=== PATIENT | female | born 1940 | race Caucasian/White ===

== ENCOUNTER → 2016-12-16 | Outpatient (CLI) | payer MEDICARE, BC ==
--- NOTE | 2016-12-17 07:35 | USB ---
Reason for exam: follow-up at short interval from prior study. History: Patient is postmenopausal. Benign excisional biopsy of the right breast, April 2016. Taking estrogen for 18 years 1 month beginning at age 51. Taking progesterone for 2 months beginning at age 70. Physical Findings: Nurse Summary: Patient states felt right breast upper thickening x 2 months (nurse mm). US Breast Limited BILAT Right breast ultrasound demonstrates no cystic or solid lesion seen. Left breast ultrasound including all four quadrants, the retroareolar region and axilla demonstrates a 0.3 x 0.2 x 0.3cm lesion too small to characterize at 2 o'clock, a 0.4 x 0.4 x 0.3cm oval, cystic lesion at 3 o'clock, a 0.4 x 0.4 x 0.2cm oval, cystic lesion at 3 o'clock and a 0.2 x 0.2 x 0.2cm lesion too small to characterize at 6 o'clock. Palpable thickening on right, additional right breast ultrasound. These results were verbally communicated with the patient and result sheet given to the patient on 12/16/16. ASSESSMENT: Benign, BI-RAD 2 RECOMMENDATION: Return to routine screening mammogram schedule for both breasts. Back on schedule for August 2017.
== END | disposition home or self-care (01) ==
LOC: RADUSWWP 14:10
PROVIDERS: ATTEND Internal Medicine
DX: R92.8 Other abnormal and inconclusive findings on diagnostic imaging of breast (principal)

== ENCOUNTER → 2017-08-12 | Outpatient (CLI) | payer MEDICARE, BC ==
[2017-08-12 09:16] LABS: CHCM 32.4; HCT 36.4 % (34.0-46.0); HDW 2.19; HGB 12.6 gm/dL (11.4-16.0); MCH 34.2 pg (25.0-35.0); MCHC 34.5 g/dL (31.0-37.0); MCV 99.1 fL (80.0-100.0); Mean Platelet Volume 8.3; RBC 3.67 m/uL (3.80-5.40); RDW 12.8 % (11.5-15.5); WBC 3.7 k/uL (3.8-10.6)
[2017-08-12 09:25] LABS: Anion Gap 6 mmol/L; Blood Urea Nitrogen 20 mg/dL (7-17); Calcium 8.9 mg/dL (8.4-10.2); Carbon Dioxide 27 mmol/L (22-30); Chloride 107 mmol/L (98-107); Glucose 85 mg/dL (74-99); Non-African American GFR(MDRD) >60 (>60 ml/min/1.73 sqM); Potassium 4.3 mmol/L (3.5-5.1); Sodium 140 mmol/L (137-145)
== END | disposition home or self-care (01) ==
LOC: LABWHC1 08:38
PROVIDERS: ATTEND Internal Medicine Clinical Cardiac Electrophysiology
DX: I48.0 Paroxysmal atrial fibrillation (principal)
CPT/HCPCS: 36415; 80048; 85027

== ENCOUNTER 2017-08-18 08:13 | Day surgery (SDC) | payer MEDICARE, BC ==
[2017-08-18] MEDS: SODIUM CHLORIDE 0.9% 1,000 ML IV SCH (09:00)
[2017-08-18 09:09] LABS: INR 2.7 (<1.2); Prothrombin Time 25.9 sec (9.0-12.0)
[2017-08-18 09:11] LABS: Basophils % (A) 1 %; CH 33.6; Eosinophils % (A) 1 %; HDW 2.14; HGB 12.6 gm/dL (11.4-16.0); Luc # (Auto) 0.09; Luc % (Auto) 3; Lymphocytes # (A) 1.1 k/uL (1.0-4.8); Lymphocytes % (A) 33 %; MCH 33.1 pg (25.0-35.0); MCHC 32.3 g/dL (31.0-37.0); MCV 102.6 fL (80.0-100.0); Macrocytosis Slight; Mean Platelet Volume 8.4; Monocytes # (A) 0.3 k/uL (0-1.0); Monocytes % (A) 9 %; Neutrophils # (A) 1.9 k/uL (1.3-7.7); Neutrophils % (A) 54 %; RDW 13.8 % (11.5-15.5); WBC 3.5 k/uL (3.8-10.6); WBC (Perox) 3.77
[2017-08-18] MEDS ORDERED: ISOPROTERENOL 250 MCG/1.25 ML SYR IV ONE (10:08)
[2017-08-18] MEDS ORDERED: MIDAZOLAM 2 MG/2 ML VIAL ONE (10:08)
[2017-08-18] MEDS ORDERED: fentaNYL (PF) 50 MCG/ML 2 ML AMP ONE (10:08)
[2017-08-18] MEDS ORDERED: PROTAMINE SULFATE 10 MG/ML 5 ML VIAL IV ONE (10:08)
[2017-08-18] MEDS ORDERED: LIDOCAINE 1% INJ 10MG/ML (20 ML MDV) ONE (10:08)
[2017-08-18] MEDS ORDERED: PROPOFOL 10 MG/ML 20 ML VIAL IV ONE (10:08)
[2017-08-18] MEDS ORDERED: LIDOCAINE 2% INJ 20 MG/ML SQ ONE (10:58)
[2017-08-18] MEDS ORDERED: HEPARIN SODIUM,PORCINE/D5W PMX 25,000 UNIT in DEXTROSE/WATER 1 500ML.BAG IV ONE (11:03)
[2017-08-18] MEDS ORDERED: IOHEXOL 350 MG/ML 100 ML BOTTLE INJ ONE (13:12)
[2017-08-18] MEDS ORDERED: ACETAMINOPHEN TAB 325 MG TAB PO PRN (13:56)
[2017-08-18] MEDS ORDERED: ACETAMINOPHEN IV (For NPO) 1,000 MG in EMPTY BAG 1 BAG IVPB ONE (13:56)
--- NOTE | 2017-08-18 14:05 | P.PCN ---
Preoperative Diagnosis: Procedures performed (PVI - CRYO Ablation) Invasive hemodynamic monitoring while general anesthesia, right femoral arterial line for monitoring and sampling Comprehensive diagnostic EP study with attempted arrhythmia induction CS pacing and recording Drug infusion Catheter the mapping of the tachycardia (NOT 3D mapping) Intracardiac echocardiography Pulmonary vein isolation with transseptal and comprehensive EPS, [id number] Procedure details Patient was brought to the EP lab in a fasting state. Written informed consent was obtained prior to the procedure. Procedure performed under general anesthesia After initial muscle relaxant use, muscle relaxants were not given thereafter in order to assess phrenic nerve during procedure Patient prepped and draped as per protocol Full cryo-set up with standard preparation of the cryoablation tools done Femoral Venous access obtained on the right and left groins Sheaths placed Diagnostic catheters for the high right atrium, phrenic nerve stimulation and pacing, His bundle, RV and coronary sinus placed Intracardiac echo catheter placed Long sheath placed in the right atrium Left and right transseptal catheterization performed under intracardiac echo guidance Intravenous heparin with aCT above 300 Later, catheter positioning and balloon positioning under intracardiac echo Baseline measurements Sinus cycle length 1125 ms, PA interval 118 ms, QRS 93 ms and QT interval 470 ms. AH 56, HV 52 Comprehensive diagnostic EP study with drug infusion Atrial pacing performed from the high right atrium and the coronary sinus Sinus node recovery times at 600 504 100 ms were 11/28/2000, 1783 and 1837 ms respectively. AV node Wenckebach block 430 ms. VA Wenckebach block greater than 590 ms Atrial ERP 600\350 ms Straight pacing from HRA and from coronary sinus Wide open Isuprel. No atrial fibrillation induced. AV node Wenckebach block improved to 290 ms. Transseptal catheterization performed RA pressure 10/27/9 LA pressure 21//11 Transseptal catheterization performed with standard sheath. The cryoablation sheath was then placed with an over the wire exchange without any acute complications. All 4 pulmonary veins were isolated in the following sequence: Left superior followed by left inferior followed by right superior followed by right inferior The cryo-ablation balloon was placed at the os of each vein 1.5 mL of IV dye was injected to confirm an occluded vein Goal during cryoablation was to achieve -30C in the first 30 seconds. If not the balloon was repositioned to obtain this result After completion of Cryoblation with durations from 180-240 seconds, entrance block was confirmed with the Attain circular catheter in a roving fashion around the antrum of the pulmonary veins Phrenic nerve pacing was performed from the SVC, right innominate vein area and diaphragm voltage was monitored as well as manually Left superior pulmonary vein 2 cryo lesions,, and os. You inferior veins Complete isolation veins with exit block Left inferior pulmonary vein Single 3 minute cryo lesion Complete isolation of the veins with exit block Right superior pulmonary vein, during phrenic nerve pacing 2 cryo lesions for the right superior vein 1 cryo lesion for the right middle vein Please isolation with entrance block Right inferior pulmonary vein, during phrenic nerve pacing 1 cryo lesion for the right inferior vein, 3 minute At the end of the procedure the Achieve catheter was once again used to check for entrance block Phrenic nerve stimulation was performed to confirm diaphragmatic stimulation the end of the procedure Cine fluoroscopy was performed at the very end of the procedure to confirm movement of both diaphragms with inspiration and expiration At the end of the procedure the patient was extubated Heparin was reversed Venous sheaths were removed and hemostasis assured Result Successful pulmonary vein isolation using cryo-ablation Complete entrance block in all 4 veins confirmed No evidence for phrenic nerve injury Evidence for sick sinus syndrome with prolonged sinus node recovery times Mildly abnormal AV node function No evidence for slow pathway conduction No evidence for accessory pathway conduction Atrial fibrillation induced prior to cryoablation and terminated during cryoablation of the left superior pulmonary vein Plan No antiarrhythmic drug therapy, continue anticoagulation PT/INR tomorrow Anesthesia: GETA Condition: stable Disposition: floor
[2017-08-18] MEDS ORDERED: FUROSEMIDE 40 MG TAB PO STA (15:23)
[2017-08-18] MEDS ORDERED: ONDANSETRON 4 MG/2 ML VIAL ONE (15:49)
[2017-08-18] MEDS ORDERED: ONDANSETRON 4 MG/2 ML VIAL IVP PRN (15:49)
[2017-08-18] MEDS ORDERED: HYDROmorphone 1 MG/ML 1 ML SYRINGE ONE (17:46)
[2017-08-18] MEDS ORDERED: HYDROmorphone 1 MG/ML 1 ML SYRINGE IVP PRN (17:48)
[2017-08-18] MEDS ORDERED: WARFARIN 5 MG TAB PO SCH (19:15)
[2017-08-18] MEDS ORDERED: FAMOTIDINE 20 MG TAB PO SCH (21:00)
[2017-08-18] MEDS: FLECAINIDE 50 MG TAB PO SCH (21:15)
[2017-08-19 05:57] LABS: CH 33.5; CHCM 32.9; HDW 2.11; HGB 11.3 gm/dL (11.4-16.0); MCH 33.1 pg (25.0-35.0); MCHC 32.4 g/dL (31.0-37.0); MCV 102.4 fL (80.0-100.0); Macrocytosis Slight; Mean Platelet Volume 8.2; RBC 3.42 m/uL (3.80-5.40); RDW 13.4 % (11.5-15.5); WBC 6.1 k/uL (3.8-10.6)
[2017-08-19 06:01] LABS: INR 2.8 (<1.2); Prothrombin Time 27.5 sec (9.0-12.0)
[2017-08-19 06:15] LABS: Anion Gap 8 mmol/L; Blood Urea Nitrogen 13 mg/dL (7-17); Calcium 8.7 mg/dL (8.4-10.2); Carbon Dioxide 25 mmol/L (22-30); Chloride 103 mmol/L (98-107); Glucose 92 mg/dL (74-99); Non-African American GFR(MDRD) >60 (>60 ml/min/1.73 sqM); Potassium 3.7 mmol/L (3.5-5.1); Sodium 136 mmol/L (137-145)
[2017-08-19] MEDS: FLECAINIDE 50 MG TAB PO SCH (07:42)
[2017-08-19] MEDS ORDERED: ATORVASTATIN 10 MG TAB PO SCH (09:00)
[2017-08-19] MEDS ORDERED: LISINOPRIL 10 MG TAB PO SCH (09:00)
[2017-08-19 09:18] VITALS: PULSE 68
[2017-08-19] MEDS: SODIUM CHLORIDE 0.9% 1,000 ML IV SCH (11:08)
[2017-08-19 11:17] VITALS: BP 99/55; TEMP 96.4
[2017-08-19 12:09] VITALS: BMI 23.6
--- NOTE | 2017-08-19 13:27 | P.PN ---
Progress Note - Text She denies any chest discomfort. Groin is healed well. She had no bleeding issues after last evening after we held pressure and put on the FemoStop. No breathing trouble no cough or phlegm in her throat is a bit irritated after intubation, otherwise she is doing well. Appetite is good she ate for breakfast and lunch. On examination heart sounds are normal normal S1 normal S2 no murmurs no gallops Breath sounds are clear no rhonchi no crackles Abdomen is soft nontender extremities warm no edema Groin is healed well no hematoma no bleeding Impression Paroxysmal atrial fibrillation, brief episodes on flecainide, intolerant of higher doses of flecainide be on 50 mrem twice daily with QRS widening noted Status post successful ablation with cryoablation of the pulmonary veins Plan Discharge home today to follow Dr. Ramos tomorrow continue anticoagulation lifelong I will start flecainide after about a month
[2017-08-19 16:36] VITALS: RESP 18
[2017-08-19] MEDS ORDERED: WARFARIN 2.5 MG TAB PO SCH (18:00)
== END 2017-08-19 17:15 | disposition home or self-care (01) ==
LOC: CATHEP 08:13 → 6SEL 18:01 → CATHEP 08-19 17:15
PROVIDERS: ATTEND Internal Medicine Clinical Cardiac Electrophysiology
DX: I48.0 Paroxysmal atrial fibrillation (principal); I49.5 Sick sinus syndrome; Z79.01 Long term (current) use of anticoagulants; I10 Essential (primary) hypertension; I49.3 Ventricular premature depolarization; Z87.891 Personal history of nicotine dependence; Z79.890 Hormone replacement therapy; Z79.899 Other long term (current) drug therapy
CPT/HCPCS: 93623; 93662; 93609; 93656; 85347; 80048; 85025; 85027; 85610 ×2; C1894 ×3; C1769 ×4; C1730 ×3; C1759; C1893; C1766; J2001 ×2; J2250; J2720; Q9967; J2405; J1644; J3010; J1170; J0131; J2704

== ENCOUNTER → 2017-12-15 | Outpatient (CLI) | payer MEDICARE, BC ==
--- NOTE | 2017-12-17 06:38 | MM ---
Reason for exam: screening (asymptomatic). Last mammogram was performed 1 year and 3 months ago. History: Patient is postmenopausal. Benign excisional biopsy of the right breast, April 2016. Taking estrogen for 18 years 1 month beginning at age 51. Taking progesterone for 2 months beginning at age 70. Physical Findings: A clinical breast exam by your physician is recommended on an annual basis and results should be correlated with mammographic findings. MG Screening Mammo w CAD Bilateral CC and MLO view(s) were taken. Prior study comparison: December 16, 2016, bilateral US breast limited BILAT. September 12, 2016, left breast MG work up mamm w CAD LT. September 09, 2016, bilateral MG screening mammo w CAD. November 30, 2014, bilateral MG screening mammo w CAD. The breast tissue is heterogeneously dense. This may lower the sensitivity of mammography. No suspicious abnormality. No significant changes when compared with prior studies. ASSESSMENT: Negative, BI-RAD 1 RECOMMENDATION: Routine screening mammogram of both breasts in 1 year.
== END | disposition home or self-care (01) ==
LOC: RADMAMWWP 12:47
PROVIDERS: ATTEND Internal Medicine
DX: Z12.31 Encounter for screening mammogram for malignant neoplasm of breast (principal)
CPT/HCPCS: 77067

== ENCOUNTER → 2018-12-11 | Outpatient (CLI) | payer MEDICARE, BC ==
--- NOTE | 2018-12-12 14:26 | MR ---
EXAMINATION TYPE: MR shoulder RT wo con DATE OF EXAM: 12/11/2018 COMPARISON: None HISTORY: Rt shoulder pain TECHNIQUE: Multiplanar, multisequence imaging of the right shoulder is performed without contrast. FINDINGS: Rotator Cuff: There is diffuse thickening of the distal margin of the supraspinatus and infraspinatus tendons with increased signal compatible with severe diffuse tendinopathy. There is a 6 mm through t hickness tear at the insertion of the conjoined portion of the tendon. No retraction. Fluid in the sinclair bacromial subdeltoid bursa noted. Acromioclavicular Joint: Arthropathy of the AC joint noted with impingement in mass effect upon the r otator cuff. Glenohumeral Joint: No sizable joint effusion. Although there is motion artifact. Glenohumeral ligame nts appear to be intact. Labrum: The labrum appears grossly intact given limitation of non-arthrogram study. Biceps Tendon: Bicipital tendon is situated within the bicipital groove. There is increased signal in the intracapsular portion of the tendon compatible tendinosis. Bone marrow signal: Marrow edema involving the greater tuberosity is nonspecific. No fracture line se en. Other: No additional significant abnormality is appreciated. IMPRESSION: 1. Diffuse tendinopathy of the supraspinatus and infraspinatus tendons with 6 mm through thickness te ar involving the insertion of the conjoined portion of the tendon. No retraction. 2. Impingement secondary to AC joint arthropathy. 3. Bicipital tendinosis.
== END | disposition home or self-care (01) ==
LOC: RADMRIMAIN 14:40
PROVIDERS: ATTEND Orthopaedic Surgery
DX: M75.101 Unspecified rotator cuff tear or rupture of right shoulder, not specified as traumatic (principal); M19.011 Primary osteoarthritis, right shoulder; M75.81 Other shoulder lesions, right shoulder; M75.21 Bicipital tendinitis, right shoulder; M25.811 Other specified joint disorders, right shoulder

== ENCOUNTER → 2018-12-29 | Outpatient (CLI) | payer MEDICARE, BC ==
--- NOTE | 2019-01-04 08:41 | MM ---
Reason for exam: screening (asymptomatic). Last mammogram was performed 1 year ago. History: Patient is postmenopausal and history of other cancer. Benign excisional biopsy of the right breast, April 2016. Taking estrogen for 27 years 1 month beginning at age 51. Taking progesterone for 8 years 2 months beginning at age 70. Physical Findings: A clinical breast exam by your physician is recommended on an annual basis and results should be correlated with mammographic findings. MG 3D Screening Mammo W/Cad Bilateral CC and MLO view(s) were taken. Prior study comparison: December 15, 2017, bilateral MG screening mammo w CAD. September 12, 2016, left breast MG work up mamm w CAD LT. The breast tissue is extremely dense which could obscure a lesion on mammography. Finding #1: There is a 9 mm circumscribed round mass in the upper quadrant, middle position of the left breast. Finding #2: There are typically benign round calcifications in both breasts. There is no discrete abnormality. New finding since December 15, 2017 and September 12, 2016. ASSESSMENT: Incomplete: need additional imaging evaluation, BI-RAD 0 RECOMMENDATION: Ultrasound of the left breast. [facility] will attempt to contact patient to return for ultrasound.
== END | disposition home or self-care (01) ==
LOC: RADMAMWWP 11:13
PROVIDERS: ATTEND Internal Medicine
DX: Z12.31 Encounter for screening mammogram for malignant neoplasm of breast (principal)
CPT/HCPCS: 77063; 77067

== ENCOUNTER → 2019-02-04 | Outpatient (CLI) | payer MEDICARE, BC ==
--- NOTE | 2019-02-05 07:50 | USB ---
Reason for exam: additional evaluation requested from abnormal screening. History: Patient is postmenopausal and history of other cancer. Benign excisional biopsy of the right breast, April 2016. Taking estrogen for 27 years 1 month beginning at age 51. Taking progesterone for 8 years 2 months beginning at age 70. Physical Findings: Nurse Summary: bilateral nodularity, all soft, movable (nurse ts). US Breast Workup Limited LT Left limited breast ultrasound including focal area of concern, retroareolar and axilla demonstrates a 0.7 x 0.5 x 0.3cm mixed lesion at 11 o'clock likely debris filled cyst and a 0.2 x 0.2 x 0.2cm lesion too small to characterize at 1 o'clock. These results were verbally communicated with the patient and result sheet given to the patient on 02/04/19. ASSESSMENT: Probably benign, BI-RAD 3 RECOMMENDATION: Ultrasound of the left breast in 6 months.
== END | disposition home or self-care (01) ==
LOC: RADUSWWP 14:25
PROVIDERS: ATTEND Internal Medicine
DX: R92.8 Other abnormal and inconclusive findings on diagnostic imaging of breast (principal)

== ENCOUNTER → 2019-08-19 | Outpatient (CLI) | payer MEDICARE, BC ==
--- NOTE | 2019-08-19 11:22 | USB ---
Reason for exam: follow-up at short interval from prior study. History: Patient is postmenopausal and history of other cancer. Benign excisional biopsy of the right breast, April 2016. Taking estrogen for 27 years 1 month beginning at age 51. Taking progesterone for 8 years 2 months beginning at age 70. Physical Findings: Nurse did not find any significant physical abnormalities on exam. US Breast Limited LT Left limited breast ultrasound including focal area of concern, retroareolar and axilla demonstrates a 0.2 x 0.2 x 0.2cm cystic lesion at 1 o'clock, on 12/16/16 this was 0.3 x 0.2 x 0.3cm, benign. These results were verbally communicated with the patient and result sheet given to the patient on 08/19/19. ASSESSMENT: Benign, BI-RAD 2 RECOMMENDATION: Return to routine screening mammogram schedule for both breasts. Back on schedule for December 2019.
== END | disposition home or self-care (01) ==
LOC: RADUSWWP 10:13
PROVIDERS: ATTEND Internal Medicine
DX: R92.8 Other abnormal and inconclusive findings on diagnostic imaging of breast (principal)

== ENCOUNTER → 2019-09-29 | Outpatient (CLI) | payer MEDICARE, BC ==
--- NOTE | 2019-09-29 09:26 | BD ---
EXAMINATION TYPE: Axial Bone Density DATE OF EXAM: 09/29/2019 COMPARISON: 09/20/2013 CLINICAL HISTORY: Disorder of bone Height: 63.5 Weight: 140.8 FRAX RISK QUESTIONS: Alcohol (3 or more units per day): no Family History (Parent hip fracture): no Glucocorticoids (More than 3mos): no (Ex: prednisone, prednisolone, methylprednisolone, dexamethasone, and hydrocortisone). History of Fracture in Adulthood: no Secondary Osteoporosis: 1. Type 1 Diabetes: no 2. Hyperthyroidism: no 3. Menopause before 45: no 4. Malnutrition: no 5. Chronic liver disease: no Rheumatoid Arthritis: no Current Tobacco Use: no RISK FACTORS HISTORY OF: Surgery to Spine/Hip(right/left)/Wrist (right/left): right hip replaced When: 8 years ago Family History of Osteoporosis: no Active: yes Diet low in dairy products/other sources of calcium: yes Postmenopausal woman: age 51 Lost more than 2 inches in height since high school: no MEDICATIONS: blood pressure meds, statin meds Additional History: EXAM MEASUREMENTS: Bone mineral densitometry was performed using the [employer] System. Bone mineral density as measured about the Lumbar spine is: ----- L1-L4(G/cm2): 1.021 T Score Values are as follows: ----- L2: -2.0 ----- L3: -1.0 ----- L4: -0.5 ----- L1-L4: -1.3 Bone mineral density has: increased 3.0 % since study of: 09.20.2013 Bone mineral density about the L hip (g/cm2): 0.803 T Score values are as follows: -----L Neck: -1.7 -----L Total: -1.0 Bone mineral density has: increased 2.6 % since study of: 09.20.2013 IMPRESSION: Osteopenia (T Score between -2.5 and 1). There is slightly increased risk of fracture and patient may be considered for treatment. Re-Screen 2-5 years. NOTE: T-SCORE=SD OF THE YOUNG ADULT MEAN.
== END | disposition home or self-care (01) ==
LOC: RADBDWWP 08:38
PROVIDERS: ATTEND Internal Medicine
DX: M85.89 Other specified disorders of bone density and structure, multiple sites (principal)
CPT/HCPCS: 77080

== ENCOUNTER → 2020-07-06 | Outpatient (CLI) | payer MEDICARE, BC ==
[2020-07-06 13:10] LABS: Appearance,Urine Clear (Clear); Bilirubin,Urine Negative (Negative); Blood,Urine Negative (Negative); Color,Urine Colorless; Glucose,Urine (UA) Negative (Negative); HCT 37.7 % (34.0-46.0); HGB 12.1 gm/dL (11.4-16.0); Ketones,Urine Negative (Negative); Leukocyte Esterase,Urine Negative (Negative); MCH 31.8 pg (25.0-35.0); MCHC 32.2 g/dL (31.0-37.0); Mean Platelet Volume 8.6; Nitrite,Urine Negative (Negative); Platelet Count 153 k/uL (150-450); Protein,Urine Negative (Negative); RBC 3.81 m/uL (3.80-5.40); RDW 12.7 % (11.5-15.5); Specific Gravity,Urine 1.005 (1.001-1.035); Urobilinogen,Urine <2.0 mg/dL (<2.0)
[2020-07-06 13:15] LABS: ALT 20 U/L (4-34); AST 41 U/L (14-36); African American GFR (CKD) >90 (>60 ml/min/1.73 sqM); Albumin 4.2 g/dL (3.5-5.0); Alkaline Phosphatase 96 U/L (38-126); Anion Gap 5 mmol/L; Blood Urea Nitrogen 18 mg/dL (7-17); Calcium 9.4 mg/dL (8.4-10.2); Carbon Dioxide 28 mmol/L (22-30); Chloride 106 mmol/L (98-107); Glucose 81 mg/dL (74-99); Non-African American GFR(CKD) 88 (>60 ml/min/1.73 sqM); Potassium 4.4 mmol/L (3.5-5.1); Sodium 139 mmol/L (137-145); Total Bilirubin 0.8 mg/dL (0.2-1.3); Total Protein 6.4 g/dL (6.3-8.2)
[2020-07-06 13:22] LABS: INR 1.7 (<1.2); Partial Thromboplastin Time 27.7 sec (22.0-30.0); Prothrombin Time 17.1 sec (9.0-12.0)
== END | disposition home or self-care (01) ==
LOC: LABPAT 12:05
PROVIDERS: ATTEND Orthopaedic Surgery
DX: Z01.812 Encounter for preprocedural laboratory examination (principal)
CPT/HCPCS: 36415; 80053; 81003; 85027; 85610; 85730; 87070

== ENCOUNTER 2020-07-10 05:38 | Day surgery (SDC) | payer MEDICARE, BC ==
[~2020-07-10 05:38] MED LIST: ACETAMINOPHEN TAB 500 MG TAB PO ONE; DEXAMETHASONE SOD PHOSPHATE 10 MG/ML 1 ML VIAL IV ONE; GABAPENTIN 300 MG CAP PO ONE; MELOXICAM 7.5 MG TAB PO ONE; MIDAZOLAM 2 MG/2 ML VIAL IV PRN; ONDANSETRON 4 MG/2 ML VIAL IVP ONE; TRANEXAMIC ACID 1,000 MG in SODIUM CHLORIDE 0.9% 100 ML IVPB ONE
[2020-07-10] MEDS ORDERED: ACETAMINOPHEN TAB 500 MG TAB ONE (05:53)
[2020-07-10] MEDS ORDERED: ONDANSETRON 4 MG/2 ML VIAL ONE (05:53)
[2020-07-10] MEDS ORDERED: LIDOCAINE 1% (10MG/ML) FOR IV START INTRADERMA ONE (06:02)
[2020-07-10] MEDS ORDERED: LACTATED RINGERS 1,000 ML IV ONE ×2 (06:03→08:18)
[2020-07-10] MEDS ORDERED: SUCCINYLCHOLINE CHLORIDE 100 MG/5 ML SYR IV ONE (06:55)
[2020-07-10] MEDS ORDERED: SODIUM CHLORIDE 0.9% 100 ML BAG ONE (06:55)
[2020-07-10] MEDS ORDERED: TRANEXAMIC ACID 1,000 MG/10 ML VIAL ONE (06:55)
[2020-07-10] MEDS ORDERED: LIDOCAINE 1% INJ 10MG/ML (20 ML MDV) ONE (06:55)
[2020-07-10] MEDS ORDERED: HEPARIN SODIUM,PORCINE 10,000 UNIT/ML 1 ML VIAL ONE (06:55)
[2020-07-10] MEDS ORDERED: HYDROmorphone (PF) 1 MG/ML ONE (06:55)
[2020-07-10] MEDS ORDERED: HYDROmorphone 0.5 MG/0.5 ML SYRINGE IVP PRN ×3 (06:55)
[2020-07-10] MEDS ORDERED: NEOSTIGMINE 1 MG/ML 10 ML VIAL ONE (06:55)
[2020-07-10] MEDS ORDERED: MAGNESIUM HYDROXIDE 2,400 MG/10 ML CUP PO PRN (06:55)
[2020-07-10] MEDS ORDERED: fentaNYL (PF) 50 MCG/ML 2 ML AMP ONE (06:55)
[2020-07-10] MEDS ORDERED: HYDROcodone/APAP 5-325MG 1 EACH TAB PO PRN (06:55)
[2020-07-10] MEDS ORDERED: SODIUM CHLORIDE 0.9% IRRIG 1,000 ML BTL IRRIGATION ONE (06:55)
[2020-07-10] MEDS ORDERED: ONDANSETRON 4 MG/2 ML VIAL IVP PRN (06:55)
[2020-07-10] MEDS ORDERED: GLYCOPYRROLATE 0.2 MG/ML 2 ML VIAL ONE (06:55)
[2020-07-10] MEDS ORDERED: ROCURONIUM BROMIDE 10 MG/ML 5 ML VIAL IV ONE (06:55)
[2020-07-10] MEDS ORDERED: NALOXONE 0.4 MG/ML 1 ML VIAL IV PRN (06:55)
[2020-07-10] MEDS ORDERED: MIDAZOLAM 2 MG/2 ML VIAL ONE (06:55)
[2020-07-10] MEDS ORDERED: PROPOFOL 10 MG/ML 20 ML VIAL IV ONE (06:55)
[2020-07-10] MEDS ORDERED: PHENYLEPHRINE-0.9% NACL SYG 1 MG/10 ML SYRINGE ONE (06:55)
[2020-07-10 06:56] LABS: INR 1.1 (<1.2); Prothrombin Time 10.9 sec (9.0-12.0)
[2020-07-10] MEDS ORDERED: ceFAZolin 3,000 MG in SODIUM CHLORIDE 0.9% IRRIGATIO 3,000 ML IRRIGATION ONE (07:28)
[2020-07-10] MEDS: ROPIVACAINE 246.25 MG, EPINEPHrine 0.5 MG, KETOROLAC 30 MG, cloNIDine HCL/PF 80 MCG, WA... MISCELLANE ONE ×10 (07:29→08:04)
--- NOTE | 2020-07-10 08:29 | P.OP ---
Date of Procedure: 07/10/20 Preoperative Diagnosis: Severe osteoarthritis left hip Postoperative Diagnosis: Severe osteoarthritis left hip Procedure(s) Performed: Left total hip arthroplasty with a direct anterior approach Implants: Levine and nephew Polarstem size 4 standard Levine [employer] Nephew R3, 3 hole acetabular shell, 48 mm [employer]ine [employer]hew reflection 6.5 mm cancellus screw, 20 mm 2 Levine [employer]hew R3, XLPE 20 acetabular liner Levine [employer] Nephew Oxinium femoral head 32 m, -3 All components were press-fit. The articulation is Oxinium on polyethylene. Anesthesia: GETA Surgeon: Juan Francisco Medrano Metal Furniture Panel Coverer #1: Rhona Garcia Estimated Blood Loss (ml): 200 (66 mL returned with Cell Saver) Pathology: other (Femoral head) Condition: stable Disposition: PACU Indications for Procedure: After failure of conservative treatment we discussed the surgical and nonsurgical treatment options at length. Patient wishes to proceed with a total hip arthroplasty with a direct anterior approach. Complications specific to this procedure were discussed at length, including but not limited to infection, leg length discrepancy, dislocation, and nerve injury. Covid-19 was also discussed at length with the patient, and they are aware of the current policies and procedures. The patient was given the option of delaying surgery, but they elect to proceed knowing these risks. Patient is aware of all these complications and informed consent was obtained Operative Findings: The operative findings are consistent with severe osteoarthritis of the left hip Description of Procedure: Patient was seen and evaluated in the preoperative area, consent was reviewed, and the surgical site was marked with a skin marker. Patient was then brought to the operating room and given prophylactic antibiotics intravenously. 1 g of Tranexamic acid was also given. A general anesthetic was administered by the anesthesia department. The patient was then placed on the [place] table with the bony prominences well-padded. The hip area was then prepped and draped in usual sterile fashion. A universal timeout was then performed, which confirmed the patient's name, surgical site, ALLERGIES, and procedure being performed. Next the incision site was located at 1 cm distal and 1 cm lateral to the anterior superior iliac spine. The skin and subcutaneous tissues were sharply incised. Incision was carefully dissected down to the fascia overlying the tensor fascia rin muscle. This fascia was then incised in line with the incision. Next, using blunt finger dissection, the tensor fascia rin muscle was dissected off its investing fascia. The muscle was then carefully retracted laterally with a cobra retractor over the lateral neck of the femur. Next, the circumflex vessels were identified and cauterized using the AquaMantis device. The anterior hip capsule was then exposed. The capsule was then opened and an inverted T fashion. Cobra retractors were then placed intracapsularly. The proximal femur was then visualized. The femoral neck was then osteotomized appropriate level above the lesser trochanter. Small amount of traction was placed with the [place] table. A small wedge of bone was then removed from the remaining femoral head. Next, using a corkscrew femoral head was easily removed from the acetabulum. On gross visual inspection, the femoral head had complete loss of articular cartilage in multiple periarticular osteophytes. Attention was then turned to the acetabulum. the acetabulum was exposed and any remaining labrum was excised. Sequential reaming of the acetabulum was performed using fluoroscopic guidance. When the appropriate size was reached, a trial was then placed. The position and fit of the trial was checked with fluoroscopy. The trial was then removed. Then, using fluoroscopic guidance, the final implant was impacted at 20 of anteversion and 40 of abduction, and fully seated in the acetabulum. 2 screws were then placed in the acetabulum. Again fluoroscopy was used to check position of the screws. Next, the liner was then impacted, with a 20 elevated liner located in the anterior superior quadrant. Component locking was confirmed. Attention was then directed to the femur. With the aid of the [place] table, the femur was externally rotated to approximately 130, extended, and abducted under the opposite leg. A side hook was then placed under the proximal femur, and the side hook elevator was used to elevate the proximal femur. Retractors were then placed. A capsular release was performed, as well as a release of the conjoined tendon, which afforded excellent visualization of the proximal femur. Next, a box osteotome was used to lateralize the proximal femur. A merchandising representative was then used to locate the femoral canal. Sequential broaching was then performed with appropriate size which afforded excellent fixation in the proximal femur. A trial was then placed with appropriate head and neck, and the hip was gently reduced with the aid of the [place] table. Fluoroscopy was then used to check position of the components, as well as to ensure equal leg lengths. The hip was then gently dislocated and the trials were then removed. Final implants were then impacted and the hip was again reduced. Final fluoroscopic x-rays confirmed that the components were in anatomic position, as well as equal leg lengths. The hip was also taken through range of motion, and found to be stable. The hip was then copiously irrigated with antibiotic solution with pulsatile lavage. The hip was then irrigated with Irrisept solution. The soft tissues were then injected with a ropivacaine solution, which consisted of 246.25 mg of ropivacaine, 0.5 mg of epinephrine, 30 mg of Toradol, 80 g of clonidine, and 48.45 mL of sterile water, for a total of 100 mL of fluid injected. A second dose of 1 g of Tranexamic acid was also given. the fascia was then closed with 2-0 strata fix suture. The subcutaneous tissue was closed with 3-0 Vicryl. The subcuticular tissue was closed with 3-0 strata fix suture. The skin was then closed with Dermabond glue and a sterile silver dressing. The patient was then transferred to the recovery room in stable condition. The assistant oceanographer NANDA Cuellar was required due to the complexity of surgery, and the need for skilled surgical physician assistant for positioning, draping, exposure, retraction, and closure of the wound.
--- NOTE | 2020-07-10 08:51 | FL ---
EXAMINATION TYPE: FL guidance operating room, XR Hip Limited LT DATE OF EXAM: 07/10/2020 COMPARISON: NONE HISTORY: Left hip arthroplasty TECHNIQUE: Fluoroscopy. FINDINGS: Fluoroscopic guidance was provided during procedure performed by Dr. Medrano. A total of 45 seconds of fluoroscopic time was utilized during the procedure and 2 spot images [address] acquired[address] Pl ease see operative report for additional details. IMPRESSION: As Above.
--- NOTE | 2020-07-10 09:08 | XR ---
EXAMINATION TYPE: XR Hip Limited LT DATE OF EXAM: 07/10/2020 CLINICAL HISTORY: Left hip pain and osteoarthritis. TECHNIQUE: Single AP portable view of left hip is obtained immediately postoperatively. COMPARISON: None. FINDINGS: Metallic hardware from left total hip arthroplasty is seen and appears satisfactory in alig nment and position. There is evidence of recent surgery with subcutaneous gas noted laterally. No e vidence of fracture. No unexpected radiopaque foreign body. IMPRESSION: Metallic hardware from left total hip arthroplasty is satisfactory in position.
[2020-07-10] MEDS: HYDROmorphone 0.5 MG/0.5 ML SYRINGE IVP PRN ×2 (09:11→09:30)
[2020-07-10] MEDS: LACTATED RINGERS 1,000 ML IV SCH (13:01)
[2020-07-10] MEDS: SODIUM CHLORIDE 0.9% 1,000 ML IV SCH ×2 (13:01→22:11)
[2020-07-10] MEDS ORDERED: SODIUM CHLORIDE 0.9% 1,000 ML IV ONE (13:02)
[2020-07-10] MEDS ORDERED: WARFARIN 2.5 MG TAB PO SCH (16:15)
--- NOTE | 2020-07-10 17:06 | P.CONS ---
History of Present Illness - Reason for Consult Consult date: 07/10/20 Medical management Requesting physician: Juan Francisco Medrano - Chief Complaint Medical management - History of Present Illness 71-year-old female with PMH of atrial fibrillation, dyslipidemia and GERD presents to [facility] for elective surgery. She underwent left total hip arthroplasty with direct anterior approach. She was seen and examined after her procedure. Patient reports no pain in her left hip. Able to ambulate to the washroom to urinate. She denies any headache, lower extremity edema, nausea or vomiting, fever chills, cough, chest pain, shortness breath, palpitations, changes in urination or bowel habits. No changes in appetite or weight. She denies any dizziness, numbness/weakness/tingling of the extremities. Review of Systems Pertinent positives and negatives as discussed in HPI, a complete review of systems was performed and all other systems are negative. Past Medical History Past Medical History: Atrial Fibrillation, GERD/Reflux, Hyperlipidemia History of Any Multi-Drug Resistant Organisms: None Reported Past Surgical History: Cardiac Ablation, Joint Replacement Additional Past Surgical History / Comment(s): rt hip replacement, TLHA 07/10/2020 Past Anesthesia/Blood Transfusion Reactions: No Reported Reaction, Motion Sickness Past Psychological History: No Psychological Hx Reported Smoking Status: Former smoker Past Alcohol Use History: Occasional Additional Past Alcohol Use History / Comment(s): smoker for 20 years 1 ppd quit 2009 Past Drug Use History: None Reported - Past Family History Daughter(s) Family Medical History: Cancer Mother Family Medical History: Cancer Medications and Allergies Home Medications Medication Instructions Recorded Confirmed Type Calcium Carbonate [Calcium] 600 mg PO BID 08/13/17 07/06/20 History Multivitamins, Thera [Multivitamin 1 tab PO DAILY 08/13/17 07/06/20 History (formulary)] Quinapril HCl [Accupril] 10 mg PO DAILY 08/13/17 07/06/20 History Ranitidine HCl [Zantac] 150 mg PO HS 08/13/17 07/06/20 History Warfarin [Coumadin] 2.5 mg PO SUTUWETHSA 08/13/17 07/06/20 History Cholecalciferol [Vitamin D3] 1,000 unit PO DAILY 08/18/17 07/06/20 History Warfarin [Coumadin] 5 mg PO MOFR 08/18/17 07/06/20 History Rosuvastatin [Crestor] 10 mg PO DAILY 06/30/20 07/06/20 History Allergies Allergy/AdvReac Type Severity Reaction Status Date / Time No Known Allergies Allergy Verified 06/30/20 11:04 Physical Exam Vitals: Vital Signs Temp Pulse Pulse Pulse Resp BP BP 07/10/20 15:00 97.9 F 66 18 99/63 07/10/20 13:15 58 L 18 129/72 07/10/20 12:30 66 18 93/52 07/10/20 12:00 60 16 91/42 07/10/20 11:30 55 L 14 93/42 07/10/20 11:00 51 L 16 96/50 07/10/20 10:30 58 L 16 87/48 07/10/20 10:05 49 L 16 98/50 07/10/20 09:50 50 L 16 98/48 07/10/20 09:35 60 16 113/61 07/10/20 09:20 62 16 103/52 07/10/20 09:05 78 16 115/62 07/10/20 08:49 85 16 126/58 07/10/20 08:32 97.7 F 78 12 121/58 07/10/20 05:57 97.6 F 67 18 148/65 Pulse Ox 07/10/20 15:00 96 07/10/20 13:15 94 L 07/10/20 12:30 97 07/10/20 12:00 99 07/10/20 11:30 100 07/10/20 11:00 100 07/10/20 10:30 100 07/10/20 10:05 100 07/10/20 09:50 100 07/10/20 09:35 95 07/10/20 09:20 100 07/10/20 09:05 100 07/10/20 08:49 100 07/10/20 08:32 95 07/10/20 05:57 99 Intake and Output 07/10/20 07/10/20 07/10/20 06:59 14:59 22:59 Intake Total 1000 51 Output Total 400 Balance 1000 -349 Intake: IV 1000 51 Output: Urine 200 Estimated Blood Loss 200 Other: # Voids 1 Weight 61.6 kg 61.6 kg General: [non toxic], [no distress], [appears at stated age] Derm: [warm], [dry] Head: [atraumatic], [normocephalic], [symmetric] Eyes: [EOMI], [no lid lag], [anicteric sclera] Mouth: [no lip lesion], [mucus membranes moist] Cardiovascular: [S1S2 reg], [no murmur], [positive DP pulse bilateral], Lungs: [CTA bilateral], [no rhonchi, no rales] , [no accessory muscle use] Abdominal: [soft], [ nontender to palpation], [no guarding], [no appreciable organomegaly] Ext: [no gross muscle atrophy], [no edema], [no contractures] Neuro: [ CN II-XI grossly intact], [no focal neuro deficits] Psych: [Alert], [oriented], [appropriate affect] Assessment and Plan Assessment: Atrial fibrillation Hypertension Dyslipidemia GERD Patient is currently rate controlled. We will restart Coumadin dosed per pharmacy today. Continue lisinopril. Monitor vitals, adjust medications if necessary. Restart statin. Restart Pepcid. Thank you for this consult. Please call with any additional questions or concerns.
[2020-07-10] MEDS ORDERED: WARFARIN 5 MG TAB PO ONE (18:00)
[2020-07-10] MEDS ORDERED: FAMOTIDINE 20 MG TAB PO SCH (21:00)
[2020-07-10] MEDS ORDERED: SENNOSIDES-DOCUSATE SODIUM 1 EACH TAB PO SCH (21:00)
[2020-07-11] MEDS: LACTATED RINGERS 1,000 ML IV SCH (05:35)
[2020-07-11] MEDS: HYDROcodone/APAP 5-325MG 1 EACH TAB PO PRN ×2 (06:02→11:18)
[2020-07-11 07:22] VITALS: BP 97/52; PULSE 83; RESP 17; TEMP 98.5
[2020-07-11 08:17] LABS: INR 1.3 (<1.2); Prothrombin Time 12.6 sec (9.0-12.0)
[2020-07-11 08:28] LABS: Basophils % (A) 0 %; Eosinophils % (A) 0 %; HCT 29.1 % (34.0-46.0); Lymphocytes # (A) 1.4 k/uL (1.0-4.8); Lymphocytes % (A) 26 %; MCH 32.4 pg (25.0-35.0); MCHC 32.5 g/dL (31.0-37.0); MCV 99.5 fL (80.0-100.0); Mean Platelet Volume 9.1; Monocytes # (A) 0.4 k/uL (0-1.0); Monocytes % (A) 8 %; Neutrophils # (A) 3.4 k/uL (1.3-7.7); Neutrophils % (A) 63 %; Platelet Count 105 k/uL (150-450); RBC 2.92 m/uL (3.80-5.40); RDW 12.9 % (11.5-15.5); WBC 5.3 k/uL (3.8-10.6)
[2020-07-11 08:42] LABS: HGB 9.5 gm/dL (11.4-16.0)
[2020-07-11] MEDS ORDERED: ATORVASTATIN 20 MG TAB PO SCH (09:00)
[2020-07-11] MEDS ORDERED: lisinopriL 10 MG TAB PO SCH (09:00)
--- NOTE | 2020-07-11 10:28 | P.DS ---
Providers Expected date of discharge: 07/11/20 Attending physician: Juan Francisco Medrano Consults: 07/10/20 06:57 Consult Physician Routine Consulting Provider: Devyn Dougherty Consult Reason/Comments: medical management and anticoagulation Do you want consulting provider notified?: Yes Primary care physician: Eladio Bojorquez - Discharge Diagnosis(es) (1) S/P total hip arthroplasty Current Visit: Yes Status: Acute (2) Osteoarthritis of left hip Current Visit: Yes Status: Acute Hospital Course: This is a 79-year-old female with known history of degenerative arthritis of the left hip. The patient presents for evaluation. After discussion and consideration patient elects to proceed with total hip arthroplasty. The patient is seen preoperatively by Dr. Medrano and medically cleared for surgery by their primary care physician. Patient is [facility] 07/10[facility]2020 for total hip arthroplasty. The procedures performed without complication or sequelae. The patient is doing well postoperatively. Labs and vital signs are stable on day of discharge. On day of discharge patient's hip incision is healing well. There is minimal erythema. There is no drainage noted at this time. There is minimal soft ti ssue swelling to the hip and thigh. Patient has full foot and ankle motion without difficulty or pain. Calf is soft and nontender to palpation. Neurovascular status to the left lower extremity is intact. Patient is discharged home in good condition. Opioid start talking form is reviewed and signed at patient bedside. Please see med rec for accurate list of home medications. Plan - Discharge Summary Discharge Rx Participant: No New Discharge Prescriptions: New HYDROcodone/APAP 5-325MG [[place] 5-325] 1 - 2 tab PO Q6HR PRN #48 tab PRN Reason: Pain Sennosides [Senokot] 2 tab PO DAILY PRN #60 tablet PRN Reason: Constipation No Action Ranitidine HCl [Zantac] 150 mg PO HS Multivitamins, Thera [Multivitamin (formulary)] 1 tab PO DAILY Calcium Carbonate [Calcium] 600 mg PO BID Warfarin [Coumadin] 2.5 mg PO SUTUWETHSA Quinapril HCl [Accupril] 10 mg PO DAILY Cholecalciferol [Vitamin D3] 1,000 unit PO DAILY Warfarin [Coumadin] 5 mg PO MOFR Rosuvastatin [Crestor] 10 mg PO DAILY Discharge Medication List Calcium Carbonate [Calcium] 600 mg PO BID 08/13/17 [History] Multivitamins, Thera [Multivitamin (formulary)] 1 tab PO DAILY 08/13/17 [History] Quinapril HCl [Accupril] 10 mg PO DAILY 08/13/17 [History] Ranitidine HCl [Zantac] 150 mg PO HS 08/13/17 [History] Warfarin [Coumadin] 2.5 mg PO SUTUWETHSA 08/13/17 [History] Cholecalciferol [Vitamin D3] 1,000 unit PO DAILY 08/18/17 [History] Warfarin [Coumadin] 5 mg PO MOFR 08/18/17 [History] Rosuvastatin [Crestor] 10 mg PO DAILY 06/30/20 [History] HYDROcodone/APAP 5-325MG [[place] 5-325] 1 - 2 tab PO Q6HR PRN #48 tab 07/11/20 [Rx] Sennosides [Senokot] 2 tab PO DAILY PRN #60 tablet 07/11/20 [Rx] Follow up Appointment(s)/Referral(s): Eladio Bojorquez MD [Primary Care Provider] - 07/18/20 3:45 pm [facility], [NON-STAFF] - Juan Francisco Medrano DO [Doctor of Osteopathic Medicine] - 07/26/20 2:15 pm Activity/Diet/Wound Care/Special Instructions: Weightbearing as tolerated with walker. Leave dressing intact. Dressing may be removed by home care nurse or by patient in 10 days. May shower with dressing on. Patient to resume Coumadin for DVT prophylaxis. Dosing per internal medicine. Recommend use of compression stockings daily until follow up to help prevent swelling and blood clots. May remove at night before sleeping. Please follow-up with [facility] in 2 weeks and call with any questions or concerns, . Discharge Disposition: HOME WITH HOME HEALTH SERVICES
[2020-07-11 10:47] VITALS: BMI 23.3
--- NOTE | 2020-07-11 11:40 | P.PN ---
Subjective Progress Note Date: 07/11/20 Patient feels fine, no chest pain, no abdominal pain, no nausea no vomiting no palpitations. Family at bedside.. Objective - Vital Signs Vital signs: Vital Signs Temp 98.5 F 07/11/20 06:43 Pulse 83 07/11/20 06:43 Resp 17 07/11/20 06:43 BP 97/52 07/11/20 06:43 Pulse Ox 96 07/11/20 06:43 Intake & Output 07/10/20 07/11/20 07/11/20 18:59 06:59 18:59 Intake Total 51 222 320 Output Total 400 Balance -349 222 320 Weight 61.6 kg 61.6 kg Intake: IV 51 Oral 222 320 Output: Urine 200 Estimated Blood Loss 200 Other: Voiding Method Toilet # Voids 1 1 - Exam Constitutional: No acute distress, conversant, pleasant Eyes: Anicteric sclerae, moist conjunctiva, no lid-lag, PERRLA ENMT: NC/AT,Oropharynx clear, no erythema, exudates Neck:Supple, FROM, no masses, or JVD, No carotid bruits; No thyromegaly Lungs: Clear to auscultation, Clear to percussion, Normal respiratory effort, no accessory muscle use Cardiovascular: Heart regular in rate and rhythm, No murmurs, gallops, or rubs no peripheral edema Abdominal: Soft Nontender, nom distended, no guarding, no rebound or rigidity, Normoactive bowel sounds No hepatomegaly, No splenomegaly, No palpable mass No abdominal wall hernia noted Skin: Normal temperature, tone, texture, turgor Extremities:No digital cyanosis No clubbing Psychiatric: Alert and oriented to person, place and time, Appropriate affect Intact judgement Neuro: Muscles Strength 5/5 in all 4 extremities, Sensation to light touch grossly present throughout, Cranial nerves II-XII grossly intact. No focal sensory deficits - Labs CBC & Chem 7: 07/11/20 07:14 Labs: Abnormal Lab Results - Last 24 Hours (Table) 07/11/20 07/11/20 Range/Units 07:14 07:14 RBC 2.92 L (3.80-5.40) m/uL Hgb 9.5 L D (11.4-16.0) gm/dL Hct 29.1 L (34.0-46.0) % Plt Count 105 L (150-450) k/uL PT 12.6 H (9.0-12.0) sec INR 1.3 H (<1.2) Assessment and Plan Plan: Chronic Atrial fibrillation Hypertension Dyslipidemia GERD Patient is currently rate controlled. On Coumadin Continue lisinopril statin. Pepcid. pt medically ok for dc home today
[2020-07-11] MEDS ORDERED: WARFARIN 2.5 MG TAB PO SCH (16:09)
[2020-07-11] MEDS ORDERED: WARFARIN 5 MG TAB PO ONE (18:00)
== END 2020-07-11 12:13 | disposition home health service (06) ==
LOC: OR 05:38 → 4SSUR 08:32 → OR 07-11 12:13
PROVIDERS: ATTEND Orthopaedic Surgery
DX: M16.12 Unilateral primary osteoarthritis, left hip (principal); I48.20 Chronic atrial fibrillation, unspecified; I10 Essential (primary) hypertension; E78.5 Hyperlipidemia, unspecified; K21.9 Gastro-esophageal reflux disease without esophagitis; Z79.01 Long term (current) use of anticoagulants; Z79.899 Other long term (current) drug therapy; Z96.641 Presence of right artificial hip joint; Z98.890 Other specified postprocedural states; Z87.891 Personal history of nicotine dependence; Z80.9 Family history of malignant neoplasm, unspecified; Z82.49 Family history of ischemic heart disease and other diseases of the circulatory system; Z80.41 Family history of malignant neoplasm of ovary
CPT/HCPCS: 97110; 97161; 97535; 97165; 86891; 85025; 85610 ×2; 88300; 73501 ×2; 27130; P9022; C1776; J2250; J0171; J1644; J1100; J2710; J0690 ×2; J2405; J2001; J3010; J1885; J1170 ×2; J2795; J2370; J0330; J2704; J0735; 86850; 86900; 86901

== ENCOUNTER → 2020-10-30 | Outpatient (CLI) | payer MEDICARE, BC ==
[2020-10-30 12:15] LABS: Partial Thromboplastin Time 20.4 sec (22.0-30.0); Prothrombin Time 10.4 sec (9.0-12.0)
== END | disposition home or self-care (01) ==
LOC: LABWHC1 10:42
PROVIDERS: ATTEND Physical Medicine & Rehabilitation
DX: Z51.81 Encounter for therapeutic drug level monitoring (principal); Z79.01 Long term (current) use of anticoagulants
CPT/HCPCS: 36415; 85610; 85730

== ENCOUNTER → 2020-12-06 | Outpatient (CLI) | payer MEDICARE, BC ==
[2020-12-07 00:11] LABS: INR 1.07 (0.90-1.11); Partial Thromboplastin Time 29.4 sec (23.5-31.0); Prothrombin Time 11.5 sec (9.9-11.9)
== END | disposition home or self-care (01) ==
LOC: LABWHC1 07:38
PROVIDERS: ATTEND Physical Medicine & Rehabilitation
DX: M47.817 Spondylosis without myelopathy or radiculopathy, lumbosacral region (principal); M54.16 Radiculopathy, lumbar region; I48.91 Unspecified atrial fibrillation; Z96.642 Presence of left artificial hip joint; Z79.01 Long term (current) use of anticoagulants
CPT/HCPCS: 36415; 85610; 85730

== ENCOUNTER → 2021-03-21 | Outpatient (CLI) | payer MEDICARE, BC ==
[2021-03-21 11:26] LABS: INR 1.06 (0.90-1.11); Prothrombin Time 11.5 sec (9.9-11.9)
== END | disposition home or self-care (01) ==
LOC: LABWHC1 07:46
PROVIDERS: ATTEND Physical Medicine & Rehabilitation
DX: M43.16 Spondylolisthesis, lumbar region (principal); M25.551 Pain in right hip; M16.12 Unilateral primary osteoarthritis, left hip; M47.27 Other spondylosis with radiculopathy, lumbosacral region
CPT/HCPCS: 36415; 85610

== ENCOUNTER → 2022-01-24 | Outpatient (CLI) | payer BC, MEDICARE ==
--- NOTE | 2022-01-24 13:43 | XR ---
Cervical spine HISTORY: M 47.812 7 views of the cervical spine There is multilevel spondylosis. Cervical vertebral bodies show preserved height and alignment. Bone mineralization is reduced. Loss of disc height is present at intervertebral levels especially C4-5, C 5-6 and C6-7. Oblique images show foraminal encroachment on the right at C3-4, C4-5 and on the left a t C4-5, lower, not well seen due to obliquity. There is multilevel facet arthropathy. Lung apices are unremarkable. Aorta is dense. Prevertebral soft tissues are normal. IMPRESSION: Degenerative disc disease and facet arthropathy, osteopenia.
== END | disposition home or self-care (01) ==
LOC: RADXRMAIN 13:06
PROVIDERS: ATTEND Internal Medicine
DX: M47.892 Other spondylosis, cervical region (principal); M85.88 Other specified disorders of bone density and structure, other site
CPT/HCPCS: 72050

== ENCOUNTER → 2022-02-14 | Outpatient (CLI) | payer MEDICARE ==
--- NOTE | 2022-02-14 09:47 | MM ---
Reason for exam: additional evaluation requested from abnormal screening. Last mammogram was performed less than 1 month ago. History: Patient is postmenopausal and history of other cancer. Benign excisional biopsy of the right breast, April 2016. Took estrogen for 27 years 1 month beginning at age 51. Took progesterone for 8 years 2 months beginning at age 70. Physical Findings: A clinical breast exam by your physician is recommended on an annual basis and results should be correlated with mammographic findings. MG 3D Work Up W/Cad LT CC with magnification, LM with magnification, and LM view(s) were taken of the left breast. Prior study comparison: February 11, 2022, bilateral MG 3d screening mammo w/cad. December 29, 2018, bilateral MG 3d screening mammo w/cad. The breast tissue is heterogeneously dense. This may lower the sensitivity of mammography. Finding: There are typically benign vascular calcifications in the anterior position of the left breast. No significant changes in finding since February 11, 2022 and December 29, 2018. ASSESSMENT: Benign, BI-RAD 2 RECOMMENDATION: Return to routine screening mammogram schedule for both breasts.
== END | disposition home or self-care (01) ==
LOC: RADMAMWWP 08:15
PROVIDERS: ATTEND Internal Medicine
DX: R92.8 Other abnormal and inconclusive findings on diagnostic imaging of breast (principal)
CPT/HCPCS: 77065; G0279; 77061

== ENCOUNTER → 2022-04-08 | Outpatient (CLI) | payer MEDICARE ==
--- NOTE | 2022-04-08 21:51 | MR ---
EXAMINATION TYPE: MR brain wo/w con DATE OF EXAM: 04/08/2022 COMPARISON: NONE HISTORY: Chronic paroxysmal hemicrania, not intractable. Headaches. TECHNIQUE: Multiplanar, multisequence images of the brain and brainstem is performed without and with IV contras t, utilizing 6 mL intravenous Gadavist . FINDINGS: Diffusion weighted images demonstrate no evidence of a recent infarct or other diffusion ab normality. There is mild to moderate ventricular and sulcal prominence. Scattered foci of T2 hyperint ensity is seen throughout the superficial, deep, and periventricular white matter. Approximately 30 s cattered lesions are seen. Lesions are nonspecific in appearance and distribution. Midline structures demonstrate normal morphology. The craniocervical junction appears within normal limits. Post contrast images demonstrate no abnormal enhancement. Incidental dominant right vertebra l artery. Nasal septum slightly deviated to right of midline. The dural venous sinuses appear patent. The visualized sinuses are clear and the globes are intact. IMPRESSION: Mild to moderate diffuse cerebral atrophy and nonspecific white matter changes may be an basis of product of proximal small vessel ischemic change and/or altered vascular mechanics related t o products of migraine headaches. No suspicious enhancement or focal enhancing masses.
== END | disposition home or self-care (01) ==
LOC: RADMRIMAIN 15:23
PROVIDERS: ATTEND Internal Medicine
DX: G44.049 Chronic paroxysmal hemicrania, not intractable (principal)
CPT/HCPCS: 70553; A9585

== ENCOUNTER → 2022-05-31 | Outpatient (CLI) | payer MEDICARE ==
[~2022-05-31] MED LIST changes: -ACETAMINOPHEN TAB 500 MG TAB PO ONE; -DEXAMETHASONE SOD PHOSPHATE 10 MG/ML 1 ML VIAL IV ONE; -GABAPENTIN 300 MG CAP PO ONE; -MELOXICAM 7.5 MG TAB PO ONE; -MIDAZOLAM 2 MG/2 ML VIAL IV PRN; -ONDANSETRON 4 MG/2 ML VIAL IVP ONE; +SODIUM CHLORIDE 0.9% 500 ML 500 ML in EMPTY BAG 1 BAG IV PRN; -TRANEXAMIC ACID 1,000 MG in SODIUM CHLORIDE 0.9% 100 ML IVPB ONE; +ZOLEDRONIC ACID 5 MG in SODIUM CHLORIDE 0.9% 100 ML IV NR
[2022-05-31 09:04] VITALS: BP 122/71; PULSE 66; RESP 15; TEMP 97.9
== END ==
LOC: PROCWHC3 08:49
PROVIDERS: ATTEND Internal Medicine
DX: M81.0 Age-related osteoporosis without current pathological fracture (principal); Z87.891 Personal history of nicotine dependence
CPT/HCPCS: 96365; J3489

== ENCOUNTER → 2022-09-05 | Outpatient (CLI) | payer MEDICARE ==
--- NOTE | 2022-09-06 11:54 | US ---
EXAMINATION TYPE: US thyroid st tissue head/neck DATE OF EXAM: 09/05/2022 COMPARISON: NONE CLINICAL HISTORY: E07.9 DISORDER OF THYROID. Disorder of thyroid. GLAND SIZE: Right Lobe: 4.3 x 1.3 x 1.1 cm Overall Parenchyma: heterogenous Left Lobe: 4.0 x 1.3 x 1.4 cm Overall Parenchyma: heterogeneous Isthmus Thickness: 0.15 cm NODULES RIGHT: # of nodules measured on right: 1 1. 0.3 X 0.3 x 0.2 cm, lower lat-mid, mixed cystic and solid nodule, which is wider than tall, with smooth margins, with echogenic foci. Prior size: No prior US LEFT: # of nodules measured on left: 2 1. 0.9 X 0.7 x 0.6 cm, upper mid, solid or almost completely solid, hypoechoic nodule, which is wid er than tall, with smooth margins, without echogenic foci. TR 4 Prior size: No prior US 2. 0.6 X 0.6 x 0.3 cm, lower mid, cystic or almost completely cystic, anechoic nodule, which is wi pankaj than tall, with lobulated or irregular margins, without echogenic foci. Prior size: No prior US ISTHMUS: # of nodules measured in the isthmus: 0 Bilateral neck scanned, no evidence of lymphadenopathy. IMPRESSION: 1. Moderately suspicious nodule left lobe thyroid. Consider follow-up exam in one year. 2017 ACR TI-RADS LEVEL: TR-RADS 4 - Moderately Suspicious: Follow if > 1 cm, FNA if > 1.5 cm *Highest TI-RADS level nodule reported
== END | disposition home or self-care (01) ==
LOC: RADUSWWP 16:11
PROVIDERS: ATTEND Internal Medicine Geriatric Medicine
DX: E07.9 Disorder of thyroid, unspecified (principal)
CPT/HCPCS: 76536

== ENCOUNTER → 2023-02-26 | Outpatient (CLI) | payer MEDICARE ==
--- NOTE | 2023-02-28 07:49 | MM ---
Reason for Exam: Screening (asymptomatic). Last mammogram was performed 1 year(s) and 1 month(s) ago. Patient History: Menarche at age 13. First Full-Term at age 25. Left ovary removed at age 51. Right ovary removed at age 51. Hysterectomy at age 51. Postmenopausal. Other cancer. Estrogen, starting at age 51 for 27 years, 1 month. Progesterone, starting at age 70 for 8 years, 2 months. 04/2016, Benign Excisional Biopsy on the right side. Daughter had ovarian cancer, age 42. Risk Values: Fabiola 5 year model risk: 1.7%. NCI Lifetime model risk: 2.5%. Prior Study Comparison: 12/29/2018 Bilateral Screening Mammogram, [facility]. 02/11/2022 Bilateral Screening Mammogram, [facility]. 02/14/2022 Left Diagnostic Mammogram, [facility]. Tissue Density: The breast tissue is heterogeneously dense. This may lower the sensitivity of mammography. Findings: Analyzed By CAD. There is no suspicious group of microcalcifications or new suspicious mass in either breast. Stable benign-appearing calcifications within both breasts. Overall Assessment: Benign, BI-RAD 2 Management: Screening Mammogram of both breasts in 1 year. A clinical breast exam by your physician is recommended on an annual basis and results should be correlated with mammographic findings. Electronically signed and approved by: Jaun Francisco Myers D.O.
== END | disposition home or self-care (01) ==
LOC: RADMAMWWP 15:00
PROVIDERS: ATTEND Internal Medicine Geriatric Medicine
DX: Z12.31 Encounter for screening mammogram for malignant neoplasm of breast (principal); Z78.0 Asymptomatic menopausal state
CPT/HCPCS: 77063; 77067

== ENCOUNTER → 2023-03-04 | Outpatient (CLI) | payer MEDICARE ==
--- NOTE | 2023-03-04 12:05 | XR ---
EXAMINATION TYPE: XR knee limited LT DATE OF EXAM: 03/04/2023 COMPARISON: NONE HISTORY: Pain TECHNIQUE: Three views are submitted. FINDINGS: Joint spaces are preserved. Osseous structures are intact. No acute fracture seen. There is a supr apatellar bursal fluid collection. Vascular calcification noted posteriorly. Tiny spur along the uppe r margin of the patella. IMPRESSION: 1. No acute fracture or dislocation. Small suprapatellar bursal fluid collection can be associated w ith internal derangement of knee correlate clinically.
--- NOTE | 2023-03-04 12:18 | US ---
EXAMINATION TYPE: US venous doppler duplex LE LT DATE OF EXAM: 03/04/2023 11:15 AM COMPARISON: NONE CLINICAL HISTORY: M25.562 PAIN IN LEFT KNEE. left leg pain, no prev dvt SIDE PERFORMED: left TECHNIQUE: The lower extremity deep venous system is examined utilizing real time linear array sonog eleno with graded compression, doppler sonography and color-flow sonography. VESSELS IMAGED: Common Femoral Vein Deep Femoral Vein Greater Saphenous Vein * Femoral Vein Popliteal Vein Small Saphenous Vein * Proximal Calf Veins (* superficial vessels) Left Leg: negative for LLE dvt,Grayscale, color doppler, spectral doppler imaging performed of the d eep veins of the lower extremities. There is normal flow, compressibility, vascular waveforms. Msg left on [employer]- phone as requested by order at the time of the exam. IMPRESSION: No evidence for left lower artery deep vein thrombosis.
== END | disposition home or self-care (01) ==
LOC: RADUSWWP 10:31
PROVIDERS: ATTEND Internal Medicine Geriatric Medicine
DX: M25.562 Pain in left knee (principal)

== ENCOUNTER → 2023-04-09 | Outpatient (CLI) | payer MEDICARE ==
[2023-04-09 19:19] LABS: INR 1.01 (0.90-1.11); Prothrombin Time 11.4 sec (9.9-11.9)
== END | disposition home or self-care (01) ==
LOC: LABWHC1 09:39
PROVIDERS: ATTEND Physical Medicine & Rehabilitation
DX: M54.16 Radiculopathy, lumbar region (principal); M47.817 Spondylosis without myelopathy or radiculopathy, lumbosacral region; M43.16 Spondylolisthesis, lumbar region; R51.9 Headache, unspecified; S39.012D Strain of muscle, fascia and tendon of lower back, subsequent encounter; M54.2 Cervicalgia; M47.812 Spondylosis without myelopathy or radiculopathy, cervical region; M43.12 Spondylolisthesis, cervical region; M48.02 Spinal stenosis, cervical region; Y99.9 Unspecified external cause status
CPT/HCPCS: 36415; 85610

== ENCOUNTER → 2024-03-02 | Outpatient (CLI) | payer MEDICARE ==
--- NOTE | 2024-03-03 13:09 | MM ---
Reason for Exam: Screening (asymptomatic). Last screening mammogram was performed 12 month(s) ago. Patient History: Menarche at age 13. First Full-Term at age 25. Left ovary removed at age 51. Right ovary removed at age 51. Hysterectomy at age 51. Postmenopausal. Estrogen, starting at age 51 for 27 years, 1 month. Progesterone, starting at age 70 for 8 years, 2 months. 04/2016, Benign Excisional Biopsy on the right side. Daughter had ovarian cancer, age 42. Risk Values: Fabiola 5 year model risk: 1.7%. NCI Lifetime model risk: 2.2%. Prior Study Comparison: 02/11/2022 Bilateral Screening Mammogram, [facility]. 02/14/2022 Left Diagnostic Mammogram, [facility]. 02/26/2023 Bilateral MG 3D screening mammo w/cad, [facility]. Tissue Density: The breasts are heterogeneously dense, which may obscure small masses. Findings: Analyzed By CAD. There are stable benign-appearing calcifications. Recommend magnification views. Area of asymmetric density in the upper central posterior right breast. Recommend spot compression view. Overall Assessment: Incomplete: need additional imaging evaluation, BI-RAD 0 Management: Diagnostic Mammogram of the right breast. . Patient should continue monthly self-breast exams. A clinical breast exam by your physician is recommended on an annual basis. This exam should not preclude additional follow-up of suspicious palpable abnormalities. Note on Fabiola scores and lifetime risk: 1. A Fabiola score greater than 3% is considered moderate risk. If this is the case, consider specialist referral to assess eligibility for a risk reducing agent. 2. If overall lifetime risk for the development of breast cancer is 20% or higher, the patient may qualify for future screening with alternating mammogram and breast MRI. Electronically signed and approved by: Kee Godinez M.D. Radiologis
== END | disposition home or self-care (01) ==
LOC: RADMAMWWP 16:27
PROVIDERS: ATTEND Internal Medicine Geriatric Medicine
DX: Z12.31 Encounter for screening mammogram for malignant neoplasm of breast (principal); Z78.0 Asymptomatic menopausal state
CPT/HCPCS: 77063; 77067

== ENCOUNTER → 2024-03-11 | Outpatient (CLI) | payer MEDICARE ==
--- NOTE | 2024-03-11 11:11 | MM ---
Reason for Exam: Additional evaluation requested from abnormal screening. Last screening mammogram was performed less than 1 month ago. Patient History: Menarche at age 13. First Full-Term at age 25. Left ovary removed at age 51. Right ovary removed at age 51. Hysterectomy at age 51. Postmenopausal. Estrogen, starting at age 51 for 27 years, 1 month. Progesterone, starting at age 70 for 8 years, 2 months. 04/2016, Benign Excisional Biopsy on the right side. Daughter had ovarian cancer, age 42. Risk Values: Fabiola 5 year model risk: 1.7%. NCI Lifetime model risk: 2.2%. Prior Study Comparison: 02/26/2023 Bilateral MG 3D screening mammo w/cad, [facility]. 03/02/2024 Bilateral MG 3D screening mammo w/cad, [facility]. Tissue Density: The breasts are heterogeneously dense, which may obscure small masses. Findings: Analyzed By CAD. The questioned posterior focal asymmetry right breast does not persist on additional views. Findings compatible with superimposition shadow. Additional magnification views of the superior calcifications indicating benign vascular calcifications. Overall Assessment: Benign, BI-RAD 2 Management: Screening Mammogram of both breasts in 1 year. . Results were given to the patient verbally at the time of exam. Patient should continue monthly self-breast exams. A clinical breast exam by your physician is recommended on an annual basis. This exam should not preclude additional follow-up of suspicious palpable abnormalities. Note on Fabiola scores and lifetime risk: 1. A Fabiola score greater than 3% is considered moderate risk. If this is the case, consider specialist referral to assess eligibility for a risk reducing agent. 2. If overall lifetime risk for the development of breast cancer is 20% or higher, the patient may qualify for future screening with alternating mammogram and breast MRI. Electronically signed and approved by: Griselda Amado M.D. Radiologist
== END | disposition home or self-care (01) ==
LOC: RADMAMWWP 10:13
PROVIDERS: ATTEND Internal Medicine Geriatric Medicine
DX: R92.8 Other abnormal and inconclusive findings on diagnostic imaging of breast (principal)
CPT/HCPCS: 77066; G0279; 77062

== ENCOUNTER → 2025-04-12 | Outpatient (CLI) | payer MEDICARE ==
[2025-04-12 17:57] LABS: Basophils # (A) 0.03 X 10*3/uL (0.00-0.10); Basophils % (A) 0.6 %; Eosinophils # (A) 0.08 X 10*3/uL (0.04-0.35); Eosinophils % (A) 1.6 %; HCT 38.6 % (37.2-46.3); HGB 12.3 g/dL (12.0-15.0); Lymphocytes # (A) 1.17 X 10*3/uL (0.90-5.00); MCH 31.5 pg (27.0-32.0); MCHC 31.9 g/dL (32.0-37.0); MCV 98.7 FL (80.0-97.0); Mean Platelet Volume 11.3 FL (9.5-12.2); Monocytes # (A) 0.63 X 10*3/uL (0.20-1.00); Monocytes % (A) 12.4 %; NRBC Per 100 WBC 0 X 10*3/uL (0.00-0.01); Neutrophils # (A) 3.16 X 10*3/uL (1.80-7.70); Neutrophils % (A) 62.2 %; Platelet Count 152 X 10*3/uL (140-440); RBC 3.91 X 10*6/uL (4.10-5.20); RDW 13.2 % (11.5-14.5); WBC 5.08 X 10*3/uL (4.50-10.00)
== END | disposition home or self-care (01) ==
LOC: LABWHC1 14:34
PROVIDERS: ATTEND Internal Medicine Geriatric Medicine
DX: D72.819 Decreased white blood cell count, unspecified (principal)
CPT/HCPCS: 36415; 85025